=== PATIENT | male | born 1940 | race Caucasian/White ===

== ENCOUNTER 2017-06-10 10:49 | Emergency (ER) | payer MEDICARE, OTHER ==
[2017-06-10 11:54] LABS: INFLUENZA A PATIENT NEGATIVE (NEGATIVE); INFLUENZA B PATIENT NEGATIVE (NEGATIVE); OBC FLU VALID
[2017-06-10 12:45] LABS: ADD MAN DIFF? NO
[2017-06-10 12:53] LABS: BASO % 1 % (0-3); EOS # 0.2 x10^3/uL (0.0-0.7); EOS % 2 % (0-3); HEMOGLOBIN 13.6 g/dL (13.0-17.5); LYMPH # 0.9 x10^3/uL (1.0-4.8); LYMPH % 14 % (24-48); MEAN CORPUSCULAR HEMOGLOBIN 29 pg (25-35); MEAN CORPUSCULAR HGB CONC 33 g/dL (31-37); MEAN CORPUSCULAR VOLUME 87 fL (79-100); MONO # 0.5 x10^3/uL (0.0-1.1); MONO % 8 % (0-9); NEUT # 5.2 x10^3uL (1.8-7.7); NEUT % 76 % (31-73); PLATELET COUNT 239 x10^3/uL (140-400); RED BLOOD COUNT 4.73 x10^6/uL (4.30-5.70); RED CELL DISTRIBUTION WIDTH 14.6 % (11.5-14.5); WHITE BLOOD COUNT 6.9 x10^3/uL (4.0-11.0)
[2017-06-10 12:58] LABS: ANION GAP 10 (6-14); BLOOD UREA NITROGEN 9 mg/dL (8-26); BUN/CREATININE RATIO 15 (6-20); CALCIUM 8.6 mg/dL (8.5-10.1); CARBON DIOXIDE 28 mmol/L (21-32); CHLORIDE 104 mmol/L (98-107); CREATININE 0.6 mg/dL (0.7-1.3); GFR 131.3; GLUCOSE 93 mg/dL (70-99); POTASSIUM 4.3 mmol/L (3.5-5.1); SODIUM 142 mmol/L (136-145)
[2017-06-10 13:07] LABS: TROPONINI < 0.017 ng/mL (0.000-0.055)
[2017-06-10 13:09] LABS: ALBUMIN 3.4 g/dL (3.4-5.0); ALBUMIN/GLOBULIN RATIO 0.9 (1.0-1.7); ALK PHOS 128 U/L (46-116); ALT (SGPT) 19 U/L (16-63); AST (SGOT) 15 U/L (15-37); TOTAL BILIRUBIN 0.7 mg/dL (0.2-1.0); TOTAL PROTEIN 7.1 g/dL (6.4-8.2)
[2017-06-10 14:36] LABS: BILIRUBIN,URINE NEGATIVE (NEG); CLARITY,URINE CLEAR; COLOR,URINE YELLOW; GLUCOSE,URINE NEGATIVE (NEG); NITRITE,URINE NEGATIVE (NEG); PROTEIN,URINE NEGATIVE (NEG-TRACE)
[2017-06-10 14:55] LABS: BACTERIA,URINE 0 /HPF (0-FEW); RBC,URINE 0 /HPF (0-2); WBC,URINE OCC /HPF (0-4)
[2017-06-10 14:56] LABS: SQUAMOUS EPITHELIAL CELL,UR OCC /LPF
== END 2017-06-10 15:00 | disposition home or self-care (01) ==
LOC: ER 10:49
DX: M21.379 Foot drop, unspecified foot (principal); I10 Essential (primary) hypertension; I69.351 Hemiplegia and hemiparesis following cerebral infarction affecting right dominant side
CPT/HCPCS: 36415; 70450; 71045; 80053; 81001; 84484; 85025; 87804; 87804-59; 93005; 99285-25

== ENCOUNTER 2018-02-24 04:30 | Inpatient (IN) | payer MEDICARE, OTHER ==
[~2018-02-24] VITALS: Ht 172.7 cm; Wt 59.0 kg
[~2018-02-24 04:30] MED LIST: CLOP75TA PO; CLOP75TA57 PO; CYAN10005 PO; ESCITALOPRAM OX10 MG PO; FERR325T72 PO; LISI-334 PO; LISI10TA2 PO; Nicotine TD; SIMV20TA PO; SIMV20TA3 PO
[2018-02-24] MEDS ORDERED: IV NORMAL SALINE 1000ML BAG 1,000 ML IV ONE (05:00)
[2018-02-24] MEDS ORDERED: DEXAMETHASONE SOD PHOS 20 MG/5 ML VIAL. IV ONE (05:00)
[2018-02-24] MEDS ORDERED: IPRATRPIUM/ALBUTEROL 0.5/2.5MG 3 ML NEBU. NEB ONE (05:00)
[2018-02-24] MEDS ORDERED: dilTIAZem IV PUSH 25 MG/5 ML VIAL IVP ONE (05:00)
[2018-02-24 05:01] LABS: BASO # 0.1 x10^3/uL (0.0-0.2); BASO % 0 % (0-3); EOS % 0 % (0-3); HEMATOCRIT 34.2 % (39.0-53.0); HEMOGLOBIN 11.3 g/dL (13.0-17.5); LYMPH # 2.4 x10^3/uL (1.0-4.8); LYMPH % 13 % (24-48); MEAN CORPUSCULAR HEMOGLOBIN 27 pg (25-35); MEAN CORPUSCULAR HGB CONC 33 g/dL (31-37); MEAN CORPUSCULAR VOLUME 82 fL (79-100); MONO # 0.6 x10^3/uL (0.0-1.1); MONO % 3 % (0-9); NEUT # 15.6 x10^3uL (1.8-7.7); NEUT % 83 % (31-73); PLATELET COUNT 533 x10^3/uL (140-400); RED BLOOD COUNT 4.15 x10^6/uL (4.30-5.70); RED CELL DISTRIBUTION WIDTH 15.6 % (11.5-14.5); WHITE BLOOD COUNT 18.8 x10^3/uL (4.0-11.0)
[2018-02-24 05:09] LABS: CALCIUM 8.9 mg/dL (8.5-10.1); CREATININE 0.9 mg/dL (0.7-1.3); POTASSIUM 3.6 mmol/L (3.5-5.1)
[2018-02-24 05:15] LABS: ALBUMIN/GLOBULIN RATIO 0.4 (1.0-1.7); TOTAL BILIRUBIN 0.6 mg/dL (0.2-1.0)
[2018-02-24] MEDS ORDERED: dilTIAZem INJ 125 MG in IV DEXTROSE 5% 100ML 100 ML IV PRN (05:15)
[2018-02-24 05:22] LABS: CREATINE KINASE 40 U/L (39-308)
[2018-02-24] MEDS ORDERED: MORPHINE SULFATE 4 MG/ML VIAL. IV ONE ×2 (05:45→09:15)
[2018-02-24] MEDS ORDERED: ACETAMINOPHEN 650 MG SUPP.RECT. PR ONE (05:45)
[2018-02-24] MEDS ORDERED: ONDANSETRON PF 4 MG/2 ML VIAL. IV PRN (05:45)
[2018-02-24] MEDS: MORPHINE SULFATE 4 MG/ML VIAL. IV PRN ×3 (06:11→13:45)
--- NOTE | 2018-02-24 06:46 | PHYS DOC ---
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 EMS noted patient's family had recently met with hospice regarding patient's current condition but no paperwork had yet been signed. Patient has had increased cough. Patient has past nuchal history of dementia as well as prior CVAs with residual right-sided deficit. HPI limited by patient's current condition and history of dementia. Review of Systems Review of Systems Respiratory: Reports cough or shortness of breath [] ROS limited by patient' s current condition and history of dementia. Current Medications Current Medications Current Medications Medications (Trade) Dose Ordered Sig/Marily Start Time Stop Time Status Last Admin Dose Admin Albuterol/ Ipratropium (Duoneb) 3 ml 1X ONCE 02/24/18 05:00 02/24/18 05:01 DC Dexamethasone Sodium Phosphate (Decadron) 10 mg 1X ONCE 02/24/18 05:00 02/24/18 05:01 DC 02/24/18 04:58 10 MG Diltiazem HCl (Cardizem) 20 mg 1X ONCE 02/24/18 05:00 02/24/18 05:07 DC 02/24/18 04:58 20 MG Diltiazem HCl 125 mg/Dextrose 125 ml @ 5 mls/hr CONT PRN 02/24/18 05:15 02/24/18 05:20 DC Lorazepam (Ativan) 1 mg PRN Q3HRS PRN 02/24/18 05:30 02/24/18 06:10 1 MG Sodium Chloride 1,000 ml @ 1,000 mls/hr 1X ONCE 02/24/18 05:00 02/24/18 05:59 DC 02/24/18 05:00 1,000 MLS/HR Allergies Allergies Allergies Coded Allergies Type Severity Reaction Last Updated Verified No Known Drug Allergies 04/02/15 No Physical Exam Physical Exam Constitutional: Moderate distress, Awake HENT: Normocephalic, atraumatic, oropharynx moist Eyes: PERRL, pupils 3mm EOMI, conjunctiva normal, slight yellow discharge noted in corner of eyes. [] Neck: supple, Full ROM Cardiovascular: Tachycardic rate, Irregular rhythm Lungs & Thorax: Coarse breath sounds throughout, Moderate respiratory distress , Accessory muscles utilized. Abdomen: Bowel sounds normal, soft, no tenderness, no masses, no pulsatile masses. [] Skin: Warm, dry, no erythema, no rash. [] Extremities: No tenderness, no deformity Neurologic: Alert, responds with one word sentences. Current Patient Data Vital Signs Vital Signs Date Time Temp Pulse Resp B/P (MAP) Pulse Ox O2 Delivery O2 Flow Rate FiO2 02/24/18 05:03 102.5 188 30 104/65 (78) 83 NonRebreather Mask 15.0 102.5 Lab Values Laboratory Tests Test 02/24/18 04:40 White Blood Count 18.8 x10^3/uL (4.0-11.0) H Red Blood Count 4.15 x10^6/uL (4.30-5.70) L Hemoglobin 11.3 g/dL (13.0-17.5) L Hematocrit 34.2 % (39.0-53.0) L Mean Corpuscular Volume 82 fL (79-100) Mean Corpuscular Hemoglobin 27 pg (25-35) Mean Corpuscular Hemoglobin Concent 33 g/dL (31-37) Red Cell Distribution Width 15.6 % (11.5-14.5) H Platelet Count 533 x10^3/uL (140-400) H Neutrophils (%) (Auto) 83 % (31-73) H Lymphocytes (%) (Auto) 13 % (24-48) L Monocytes (%) (Auto) 3 % (0-9) Eosinophils (%) (Auto) 0 % (0-3) Basophils (%) (Auto) 0 % (0-3) Neutrophils # (Auto) 15.6 x10^3uL (1.8-7.7) H Lymphocytes # (Auto) 2.4 x10^3/uL (1.0-4.8) Monocytes # (Auto) 0.6 x10^3/uL (0.0-1.1) Eosinophils # (Auto) 0.0 x10^3/uL (0.0-0.7) Basophils # (Auto) 0.1 x10^3/uL (0.0-0.2) Sodium Level 140 mmol/L (136-145) Potassium Level 3.6 mmol/L (3.5-5.1) Chloride Level 103 mmol/L (98-107) Carbon Dioxide Level 27 mmol/L (21-32) Anion Gap 10 (6-14) Blood Urea Nitrogen 11 mg/dL (8-26) Creatinine 0.9 mg/dL (0.7-1.3) Estimated GFR (Cockcroft-Gault) 82.0 BUN/Creatinine Ratio 12 (6-20) Glucose Level 161 mg/dL (70-99) H Lactic Acid Level 2.5 mmol/L (0.4-2.0) H Calcium Level 8.9 mg/dL (8.5-10.1) Magnesium Level 2.0 mg/dL (1.8-2.4) Total Bilirubin 0.6 mg/dL (0.2-1.0) Aspartate Amino Transferase (AST) 15 U/L (15-37) Alanine Aminotransferase (ALT) 26 U/L (16-63) Alkaline Phosphatase 113 U/L (46-116) Creatine Kinase 40 U/L (39-308) Creatine Kinase MB (Mass) 0.6 ng/mL (0.0-3.6) Creatine Kinase MB Relative Index % (0-4) Troponin I Quantitative < 0.017 ng/mL (0.000-0.055) AS-Jeg-N-Type Natriuretic Peptide 870 pg/mL (0-449) H Total Protein 7.0 g/dL (6.4-8.2) Albumin 2.0 g/dL (3.4-5.0) L Albumin/Globulin Ratio 0.4 (1.0-1.7) L Laboratory Tests 02/24/18 04:40 Laboratory Tests 02/24/18 04:40 EKG EKG [] Radiology/Procedures Radiology/Procedures AP CXR: No focal infiltration Course & Med Decision Making Course & Med Decision Making Pertinent Labs and Imaging studies reviewed. (See chart for details) Elderly frail patient with past medical history of prior CVAs with residual right-sided deficit presents with report of significant respiratory distress with concern for possible aspiration. Patient noted to be hypoxic upon EMS arrival despite supplemental O2 continued and mid 80% on nonrebreather. Patient with coarse breath sounds throughout. DuoNeb's initially provided with limited relief.Patient with tachyarrhythmia and therefore Cardizem bolus provided. Patient noted to be febrile for which Tylenol suppository was given. IV fluid hydration also provided. Labs obtained and posted to chart. Chest x-ray without focal opacity. Discussed case with patient's DPOA who reported she recently verbally told staff development nurse that patient would like to be a DNR/DNI and had recently met with hospice regarding. DPOA elects for patient to be made comfort care measures only. Therefore cardizem gtt discontinued. Morphine and Ativan ordered.Patient requiring admission for further evaluation and treatment. Discussed with Dr. Lorenzo (hospitalist) who is in agreement with admission. Discussed findings and plan with family, who acknowledge understanding and agreement. Dragon Disclaimer Dragon Disclaimer This electronic medical record was generated, in whole or in part, using a voice recognition dictation system. Departure Departure Impression: Primary Impression: Respiratory failure Additional Impressions: Need for comfort care Aspiration into respiratory tract Tachyarrhythmia History of dementia Fever Lactic acidosis Hypoxia Disposition: ADMITTED INPATIENT Admitting Physician: Vladimir Lorenzo Condition: CRITICAL Referrals: JENNIFER MOSQUERA MD (PCP) Critical Care Time Critical care time was 30-74 minutes which includes time at bedside, spent in discussion of patient's care with specialists and/or family members, with interpretation of laboratory and/or radiological studies and is exclusive of procedures. Problem Qualifiers Primary Impression: Respiratory failure Chronicity: unspecified Respiratory failure complication: hypoxia Qualified Codes: J96.91 - Respiratory failure, unspecified with hypoxia Additional Impressions: Aspiration into respiratory tract Encounter type: initial encounter Qualified Codes: T17.908A - Unspecified foreign body in respiratory tract, part unspecified causing other injury, initial encounter Fever Fever type: unspecified Qualified Codes: R50.9 - Fever, unspecified SUNNY REED DO Feb 24, 2018 06:45
[2018-02-24 07:00] VITALS: BP 119/66
--- NOTE | 2018-02-24 07:59 | RAD ---
Portable chest, 02/24/2018: HISTORY: Shortness of breath The heart size is normal. There is calcific plaquing of the aorta. No pulmonary consolidation is seen. There is no evidence of pleural fluid. IMPRESSION: No acute cardiopulmonary abnormality is detected. Electronically signed by: Yunior Wilks MD (02/24/2018 7:56 AM) [facility]
--- NOTE | 2018-02-24 08:54 | PDOC2 ---
PALLIATIVE CARE Palliative Care Note Palliative Care Consult requested by Dr. Mckee for EOL care Patient admitted from [facility] 02/24/2018 with SOB. Need for comfort care Aspiration into respiratory tract Tachyarrhythmia History of dementia Fever Lactic acidosis Hypoxia PMH: CVA x2, Dementia, HTN. Patient unresponsive. RR 38 HR 168 Upper airway noise. Spoke with daughters. Family had met with [facility] recently and was to start Hospice today. [facility] here to visit. Family requests comfort care. Morphine 4mg given x 2. Ativan available for restlessness. Spoke with Davide. Will call Dr. Mckee for increased symptom management including increase in Morphine and Robinul for secretion control. Code Status; DNR/DNI. 1315 patient on Morphine 2mg gtt. Family at bedside. Spoke with Rosario MURRIETA. States she would like to have the oxygen removed --concerned that this may be prolonging his dying. All of his family have visited. Will contact Dr. Cook. Recommend Morphine 4mg and Ativan 1mg IV prior to removing the oxygen. PAUL VARGAS Feb 24, 2018 08:54
[2018-02-24] MEDS ORDERED: GLYCOPYRROLATE 1 MG/5 ML VIAL. IV PRN ×2 (09:15→10:00)
--- NOTE | 2018-02-24 09:22 | PDOC1 ---
History and Physical Date of Admission Date of Admission DATE: 02/24/18 TIME: 09:17 Identification/Chief Complaint Chief Complaint resp distress Source Source: Chart review, Patient History of Present Illness History of Present Illness Mr. Ferris, is a 77-year-old male [facility] resp distress. Likely aspiration after eating last night. . EMS noted patient's family had recently met with [facility] regarding patient's current condition but no paperwork had yet been signed. cough and dyspnea and distress last night, now resp rate in upper 30's Patient has past nuchal history of dementia as well as prior CVAs with residual right-sided weakness and now contracture Past Medical History Cardiovascular: HTN, Hyperlipidemia CENTRAL NERVOUS SYSTEM: CVA Past Surgical History Past Surgical History: Cataract Removal, Total hip replacement Social History Smoke: No ALCOHOL: none Drugs: None Current Problem List Problem List Problems Medical Problems: (1) Aspiration into respiratory tract Status: Acute (2) Fever Status: Acute (3) History of dementia Status: Acute (4) Hypoxia Status: Acute (5) Lactic acidosis Status: Acute (6) Need for comfort care Status: Acute (7) Respiratory failure Status: Acute (8) Tachyarrhythmia Status: Acute Current Medications Current Medications Current Medications Albuterol/ Ipratropium (Duoneb) 3 ml 1X ONCE NEB ; Start 02/24/18 at 05:00; Stop 02/24/18 at 05:01; Status DC Dexamethasone Sodium Phosphate (Decadron) 10 mg 1X ONCE IV Last administered on 02/24/18at 04:58; Start 02/24/18 at 05:00; Stop 02/24/18 at 05:01; Status DC Diltiazem HCl (Cardizem) 20 mg 1X ONCE IVP Last administered on 02/24/18at 04: 58; Start 02/24/18 at 05:00; Stop 02/24/18 at 05:07; Status DC Diltiazem HCl 125 mg/Dextrose 125 ml @ 5 mls/hr CONT PRN IV SEE I/O RECORD; Start 02/24/18 at 05:15; Stop 02/24/18 at 05:20; Status DC Sodium Chloride 1,000 ml @ 1,000 mls/hr 1X ONCE IV Last administered on at 05:00; Start 02/24/18 at 05:00; Stop 02/24/18 at 05:59; Status DC Morphine Sulfate (Morphine Sulfate) 4 mg 1X ONCE IV Last administered on at 06:08; Start 02/24/18 at 05:45; Stop 02/24/18 at 05:47; Status DC Lorazepam (Ativan) 2 mg STK-MED ONCE .ROUTE ; Start 02/24/18 at 05:26; Stop at 05:27; Status DC Lorazepam (Ativan) 1 mg 1X ONCE IV Last administered on 02/24/18at 05:34; Start 02/24/18 at 05:30; Stop 02/24/18 at 05:47; Status DC Ondansetron HCl (Zofran) 4 mg PRN Q8HRS PRN IV NAUSEA/VOMITING; Start 02/24/18 at 05:45; Stop 02/25/18 at 05:44 Morphine Sulfate (Morphine Sulfate) 4 mg PRN Q2HR PRN IV PAIN Last administered on 02/24/18at 08:01; Start 02/24/18 at 05:45; Stop 02/25/18 at 05:44 Lorazepam (Ativan) 1 mg PRN Q3HRS PRN IV ANXIETY / AGITATION Last administered on 02/24/18at 06:10; Start 02/24/18 at 05:30 Acetaminophen (Tylenol Supp) 650 mg 1X ONCE LA ; Start 02/24/18 at 05:45; Stop 02/24/18 at 05:47; Status DC Active Scripts Active [Nicotine] 1 PATCH Patch 1 Patch TD DAILY Feosol (Ferrous Sulfate) 325 Mg Tablet 325 Mg PO BIDWMEALS Vitamin B-12 (Cyanocobalamin (Vitamin B-12)) 1,000 Mcg Tablet 1,000 Mcg PO DAILY Zocor (Simvastatin) 20 Mg Tablet 20 Mg PO HS Plavix (Clopidogrel Bisulfate) 75 Mg Tablet 75 Mg PO DAILYWBKFT Reported Escitalopram Oxalate 10 Mg Tablet 10 Tab PO DAILY Simvastatin 20 Mg Tablet 20 Mg PO DAILY Clopidogrel (Clopidogrel Bisulfate) 75 Mg Tablet 75 Mg PO DAILY Lisinopril 20 Mg Tablet 1 Tab PO DAILY Lisinopril 10 Mg Tablet 1 Tab PO DAILY Allergies Allergies: Coded Allergies: No Known Drug Allergies (Unverified , 04/02/15) ROS General: No: Chills, Night Sweats, Fatigue, Malaise, Appetite, Other PSYCHOLOGICAL ROS: No: Anxiety, Behavioral Disorder, Concentration difficultie , Decreased libido, Depression, Disorientation, Hallucinations, Hostility, Irritablity, Memory difficulties, Mood Swings, Obsessive thoughts, Physical abuse, Sexual abuse, Sleep disturbances, Suicidal ideation, Other Eyes: No Blurry vision, No Decreased vision, No Double vision, No Dry eyes, No Excessive tearing, No Eye Pain, No Itchy Eyes, No Loss of vision, No Photophobia , No Scotomata, No Uses contacts, No Uses glasses, No Other HEENT: No: Heacaches, Visual Changes, Hearing change, Nasal congestion, Nasal discharge, Oral lesions, Sinus pain, Sore Throat, Epistaxis, Sneezing, Snoring, Tinnitus, Vertigo, Vocal changes, Other Respiratory: No: Cough, Hemoptysis, Orthopnea, Pleuritic Pain, Shortness of breath, SOB with excertion, Sputum Changes, Stridor, Tachypnea, Wheezing, Other Cardiovascular: No Chest Pain, No Palpitations, No Orthopnea, No Paroxysmal Noc. Dyspnea, No Edema, No Lt Headedness, No Other Gastrointestinal: No Nausea, No Vomiting, No Abdominal Pain, No Diarrhea, No Constipation, No Melena, No Hematochezia, No Other Genitourinary: No Dysuria, No Frequency, No Incontinence, No Hematuria, No Retention, No Discharge, No Urgency, No Pain, No Flank Pain, No Other, No , No , No , No , No , No , No Musculoskeletal: No Gait Disturbance, No Joint Pain, No Joint Stiffness, No Joint Swelling, No Muscle Pain, No Muscular Weakness, No Pain In:, No Swelling In:, No Other Neurological: No Behavorial Changes, No Bowel/Bladder ControlChng, No Confusion , No Dizziness, No Gait Disturbance, No Headaches, No Impaired Coord/balance, No Memory Loss, No Numbness/Tingling, No Seizures, No Speech Problems, No Tremors, No Visual Changes, No Weakness, No Other Skin: Yes Dry Skin; No Eczema, No Hair Changes, No Lumps, No Mole Changes, No Mottling, No Nail Changes, No Pruritus, No Rash, No Skin Lesion Changes, No Other, No Acne Physical Exam General: Alert, Cooperative, No acute distress HEENT: EOMI Lungs: Clear to auscultation, Normal air movement Heart: S1S2, no murmurs Abdomen: Soft Extremities: No cyanosis, No edema, Normal pulses Skin: No rashes, No significant lesion Neuro: Normal speech, Normal tone, Cranial nerves 3-12 NL Psych/Mental Status: Mental status NL, Mood NL Vitals Vitals Vital Signs Date Time Temp Pulse Resp B/P (MAP) Pulse Ox O2 Delivery O2 Flow Rate FiO2 02/24/18 07:00 138 35 119/66 (83) 73 NonRebreather Mask 15.0 02/24/18 05:03 102.5 102.5 Labs Labs Laboratory Tests Test 02/24/18 04:40 White Blood Count 18.8 x10^3/uL (4.0-11.0) Red Blood Count 4.15 x10^6/uL (4.30-5.70) Hemoglobin 11.3 g/dL (13.0-17.5) Hematocrit 34.2 % (39.0-53.0) Mean Corpuscular Volume 82 fL (79-100) Mean Corpuscular Hemoglobin 27 pg (25-35) Mean Corpuscular Hemoglobin Concent 33 g/dL (31-37) Red Cell Distribution Width 15.6 % (11.5-14.5) Platelet Count 533 x10^3/uL (140-400) Neutrophils (%) (Auto) 83 % (31-73) Lymphocytes (%) (Auto) 13 % (24-48) Monocytes (%) (Auto) 3 % (0-9) Eosinophils (%) (Auto) 0 % (0-3) Basophils (%) (Auto) 0 % (0-3) Neutrophils # (Auto) 15.6 x10^3uL (1.8-7.7) Lymphocytes # (Auto) 2.4 x10^3/uL (1.0-4.8) Monocytes # (Auto) 0.6 x10^3/uL (0.0-1.1) Eosinophils # (Auto) 0.0 x10^3/uL (0.0-0.7) Basophils # (Auto) 0.1 x10^3/uL (0.0-0.2) Sodium Level 140 mmol/L (136-145) Potassium Level 3.6 mmol/L (3.5-5.1) Chloride Level 103 mmol/L (98-107) Carbon Dioxide Level 27 mmol/L (21-32) Anion Gap 10 (6-14) Blood Urea Nitrogen 11 mg/dL (8-26) Creatinine 0.9 mg/dL (0.7-1.3) Estimated GFR (Cockcroft-Gault) 82.0 BUN/Creatinine Ratio 12 (6-20) Glucose Level 161 mg/dL (70-99) Lactic Acid Level 2.5 mmol/L (0.4-2.0) Calcium Level 8.9 mg/dL (8.5-10.1) Magnesium Level 2.0 mg/dL (1.8-2.4) Total Bilirubin 0.6 mg/dL (0.2-1.0) Aspartate Amino Transf (AST/SGOT) 15 U/L (15-37) Alanine Aminotransferase (ALT/SGPT) 26 U/L (16-63) Alkaline Phosphatase 113 U/L (46-116) Creatine Kinase 40 U/L (39-308) Creatine Kinase MB (Mass) 0.6 ng/mL (0.0-3.6) Creatine Kinase MB Relative Index % (0-4) Troponin I Quantitative < 0.017 ng/mL (0.000-0.055) EW-Ejh-Y-Type Natriuretic Peptide 870 pg/mL (0-449) Total Protein 7.0 g/dL (6.4-8.2) Albumin 2.0 g/dL (3.4-5.0) Albumin/Globulin Ratio 0.4 (1.0-1.7) Laboratory Tests Test 02/24/18 04:40 White Blood Count 18.8 x10^3/uL (4.0-11.0) Red Blood Count 4.15 x10^6/uL (4.30-5.70) Hemoglobin 11.3 g/dL (13.0-17.5) Hematocrit 34.2 % (39.0-53.0) Mean Corpuscular Volume 82 fL (79-100) Mean Corpuscular Hemoglobin 27 pg (25-35) Mean Corpuscular Hemoglobin Concent 33 g/dL (31-37) Red Cell Distribution Width 15.6 % (11.5-14.5) Platelet Count 533 x10^3/uL (140-400) Neutrophils (%) (Auto) 83 % (31-73) Lymphocytes (%) (Auto) 13 % (24-48) Monocytes (%) (Auto) 3 % (0-9) Eosinophils (%) (Auto) 0 % (0-3) Basophils (%) (Auto) 0 % (0-3) Neutrophils # (Auto) 15.6 x10^3uL (1.8-7.7) Lymphocytes # (Auto) 2.4 x10^3/uL (1.0-4.8) Monocytes # (Auto) 0.6 x10^3/uL (0.0-1.1) Eosinophils # (Auto) 0.0 x10^3/uL (0.0-0.7) Basophils # (Auto) 0.1 x10^3/uL (0.0-0.2) Sodium Level 140 mmol/L (136-145) Potassium Level 3.6 mmol/L (3.5-5.1) Chloride Level 103 mmol/L (98-107) Carbon Dioxide Level 27 mmol/L (21-32) Anion Gap 10 (6-14) Blood Urea Nitrogen 11 mg/dL (8-26) Creatinine 0.9 mg/dL (0.7-1.3) Estimated GFR (Cockcroft-Gault) 82.0 BUN/Creatinine Ratio 12 (6-20) Glucose Level 161 mg/dL (70-99) Lactic Acid Level 2.5 mmol/L (0.4-2.0) Calcium Level 8.9 mg/dL (8.5-10.1) Magnesium Level 2.0 mg/dL (1.8-2.4) Total Bilirubin 0.6 mg/dL (0.2-1.0) Aspartate Amino Transf (AST/SGOT) 15 U/L (15-37) Alanine Aminotransferase (ALT/SGPT) 26 U/L (16-63) Alkaline Phosphatase 113 U/L (46-116) Creatine Kinase 40 U/L (39-308) Creatine Kinase MB (Mass) 0.6 ng/mL (0.0-3.6) Creatine Kinase MB Relative Index % (0-4) Troponin I Quantitative < 0.017 ng/mL (0.000-0.055) LB-Wjj-P-Type Natriuretic Peptide 870 pg/mL (0-449) Total Protein 7.0 g/dL (6.4-8.2) Albumin 2.0 g/dL (3.4-5.0) Albumin/Globulin Ratio 0.4 (1.0-1.7) VTE Prophylaxis Ordered VTE Prophylaxis Devices: Yes VTE Pharmacological Prophylaxi: No Assessment/Plan Assessment/Plan aspiration pneumonitis sepsis syndrome, severe sepsis with hypotension acute hypoxic respiratory failure advance dementia, had planned to start hospice care today with encompass severe malnutrition Palliative care only, DNR, family wants comfort only will start Palliative panel, glycopyrolate, morphine gtt, admit EUGENIO SORIANO MD Feb 24, 2018 09:22
[2018-02-24] MEDS: MORPHINE SULFATE/PF 30 ML IV PRN (09:43)
[2018-02-25] MEDS: MORPHINE SULFATE/PF 30 ML IV PRN (00:15)
--- NOTE | 2018-02-26 09:14 | PDOC3 ---
Discharge Summary Visit Information Date of Admission: Feb 24, 2018 Date of Discharge: Feb 25, 2018 Admitting Diagnosis: sepsis, severe sepsis Final Diagnosis Aspiration into respiratory tract Tachyarrhythmia History of dementia Fever Lactic acidosis Hypoxia bacteremia advanced dementia, patient admitted to palliative care only, comfort measures from ER Problems Medical Problems: (1) Aspiration into respiratory tract Status: Acute (2) Fever Status: Acute (3) History of dementia Status: Acute (4) Hypoxia Status: Acute (5) Lactic acidosis Status: Acute (6) Need for comfort care Status: Acute (7) Respiratory failure Status: Acute (8) Tachyarrhythmia Status: Acute Brief Hospital Course Allergies Allergies Coded Allergies Type Severity Reaction Last Updated Verified No Known Drug Allergies 04/02/15 No Brief Hospital Course Mr. Ferris is a 77 old male, with advnaced dementia, admit for palliative, sepsis, likely aspiration, blood cx were pos. Large family group was here, comfort was only goal, limited w/u Discharge Information Condition at Discharge: / Disposition/Orders: Scheduled Clopidogrel Bisulfate (Plavix) 75 Mg Tablet, 75 MG PO DAILYWBKFT, #30 Ref 2 Prescribed by: AVI BRO MD on 04/04/15 1506 Clopidogrel Bisulfate (Clopidogrel) 75 Mg Tablet, 75 MG PO DAILY for TO PREVENT BLOOD CLOTS, #30 Ref 0 (Reported) Entered as Reported by: JULIAN JORGENSEN on 03/02/16 1714 Cyanocobalamin (Vitamin B-12) (Vitamin B-12) 1,000 Mcg Tablet, 1,000 MCG PO DAILY, #30 Prescribed by: ABIODUN OTT MD on 03/08/16 1118 Escitalopram Oxalate (Escitalopram Oxalate) 10 Mg Tablet, 10 TAB PO DAILY, #30 Ref 3 (Reported) Entered as Reported by: JULIAN JORGENSEN on 03/02/16 1714 Ferrous Sulfate (Feosol) 325 Mg Tablet, 325 MG PO BIDWMEALS, #30 Prescribed by: ABIODUN OTT MD on 03/08/16 1118 Lisinopril (Lisinopril) 10 Mg Tablet, 1 TAB PO DAILY, #30 Ref 5 (Reported) Entered as Reported by: VAUGHN RODGERS on 04/04/15 1523 Lisinopril (Lisinopril) 20 Mg Tablet, 1 TAB PO DAILY, #30 Ref 5 (Reported) Entered as Reported by: JULIAN JORGENSEN on 03/02/16 1714 Simvastatin (Zocor) 20 Mg Tablet, 20 MG PO HS, #30 Prescribed by: AVI BRO MD on 04/04/15 1506 Simvastatin (Simvastatin) 20 Mg Tablet, 20 MG PO DAILY for FOR CHOLESTEROL, #30 Ref 0 (Reported) Entered as Reported by: JULIAN JORGENSEN on 03/02/164 [Nicotine] 1 PATCH PATCH, 1 PATCH TD DAILY, #30 Prescribed by: ABIODUN OTT MD on 03/08/16 1118 EUGENIO SORIANO MD Feb 26, 2018 09:14
== END 2018-02-25 05:03 | disposition expired | DRG 871 ==
LOC: ER 04:30 → 6 SOUTH 05:30
PROVIDERS: ADMIT Family Medicine; ATTEND Family Medicine
DX: A41.9 Sepsis, unspecified organism (principal); J69.0 Pneumonitis due to inhalation of food and vomit; E43 Unspecified severe protein-calorie malnutrition; J96.01 Acute respiratory failure with hypoxia; I69.351 Hemiplegia and hemiparesis following cerebral infarction affecting right dominant side; Z68.1 Body mass index [BMI] 19.9 or less, adult; F03.90 Unspecified dementia, unspecified severity, without behavioral disturbance, psychotic disturbance, mood disturbance, and anxiety; Z51.5 Encounter for palliative care; I10 Essential (primary) hypertension; E78.5 Hyperlipidemia, unspecified; Z66 Do not resuscitate; R65.20 Severe sepsis without septic shock; Z96.649 Presence of unspecified artificial hip joint; T17.908A Unspecified foreign body in respiratory tract, part unspecified causing other injury, initial encounter; X58.XXXA Exposure to other specified factors, initial encounter; Y93.89 Activity, other specified; Y92.89 Other specified places as the place of occurrence of the external cause; Y99.8 Other external cause status
CPT/HCPCS: 36415; 71045; 80053; 82553; 83605; 83735; 83880; 84484; 85025; 87040; 94640; 96361; 96374; 96375; 99291; J1100; J2060; J2270; J3490; J7030